=== PATIENT | male | born 1945 | race Caucasian/White ===

== ENCOUNTER 2018-04-28 07:26 | Day surgery (SDC) | payer BC ==
[~2018-04-28 07:26] MED LIST: KETOROLAC TROMETHAMINE 0.45% 4 DROP/0.4 ML DROPERETTE OS PRN; MIDAZOLAM 2 MG/2 ML INJ ONE
[2018-04-28] MEDS: CYCLOPENTOLATE 0.2%/PHENYLEPHRINE 1% OPH SOLN 2 ML OS PRN ×3 (07:54→08:15)
[2018-04-28] MEDS: TETRACAINE HCL 0.5% OPH SOLN 0.6 ML DROPERETTE OS PRN ×2 (07:54→08:15)
[2018-04-28] MEDS: TROPICAMIDE 1% OPH SOLN 3 ML OS PRN ×3 (07:54→08:15)
[2018-04-28] MEDS: BESIFLOXACIN HCL 0.6% OPH SUSP 5 ML BOTTLE OS PRN ×4 (07:54→08:55)
[2018-04-28] MEDS: BUPIVACAINE HCL 0.75% INJ/PF (7.5 MG/1 ML) 10 ML SDV OS PRN ×2 (08:30)
[2018-04-28] MEDS: LIDOCAINE 4% INJ/PF (40 MG/ML) 5 ML AMPUL OS PRN ×2 (08:30)
[2018-04-28] MEDS: EPINEPHRINE INJ/PF 1 MG/1 ML AMPULE ONE ×2 (08:39)
[2018-04-28] MEDS: LIDOCAINE 1%/PHENYLEPHRINE 1.5% 1 ML VIAL ONE ×2 (08:42)
[2018-04-28] MEDS: CHONDR SU A NA/HYALUR INTRAOC KIT (SURGICARE) ONE ×2 (08:45)
--- NOTE | 2018-04-28 11:05 | [facility] DISCHARGE SUMMARY E ---
[facility] Discharge Summary NAME: TIM NUNES AGE: 72Y ADMITTED: 04/28/2018 DISCHARGED: 04/28/2018 FINAL DIAGNOSIS: Cataract, left eye. HOSPITAL COURSE: The patient is a 72-year-old gentleman who underwent uneventful cataract extraction with intraocular lens implant, left eye, on 04/28/2018. He will be discharged to home. He was instructed to resume preoperative medications; to take Tylenol as needed for discomfort; to keep his eye shielded; to use Besivance, Durezol, and Ilevro at 3 p.m. and 8 p.m.; and to follow up in my office in 1 day. DICTATING PHYSICIAN: PERCY SEXTON M.D. [id number] PHY#: [id number] ID: [id number] JOB#: [id number] ACCT: [id number] cc:PERCY SEXTON M.D. >
--- NOTE | 2018-04-28 11:05 | [facility] OPERATIVE REPORT E ---
[facility] Operative Report NAME: TIM NUNES AGE: 72Y DATE OF SURGERY: 04/28/2018 ROOM: PREOPERATIVE DIAGNOSIS: Cataract, left eye. POSTOPERATIVE DIAGNOSIS: Cataract, left eye. PROCEDURE PERFORMED: Phacoemulsification with posterior chamber intraocular lens, left eye. SURGEON: PERCY SEXTON M.D. ANESTHESIA: Topical with MAC. INDICATIONS FOR SURGERY: Difficulty reading captions on TV and driving at night. Best corrected visual acuity 20/40. PROCEDURE: The patient was brought to the operating room and placed on the operative table. Following tetracaine drops, topical anesthesia was administered. This consisted of instrument wipe pledgets soaked in a solution of 4% Xylocaine mixed with 0.75% Marcaine in a 1:2 ratio. A 2 x 1 cm pledget was placed in the superior fornix. A 1 x 1 cm pledget was placed in the inferior fornix. The eye was patched shut for 5 minutes. The patch was removed. The eye was sterilely prepped and draped in the usual manner. Lid speculum was placed in the eye. The pledgets were removed and 4-0 black silk sutures were placed around the superior and the inferior rectus muscles to be used as traction. A conjunctival peritomy was made at the 10 o'clock position. Hemostasis was obtained with bipolar cautery. A posterior limbal groove was created using a crescent knife and dissected anteriorly towards the cornea. A sharp point blade was used to create a paracentesis site at the 2 o'clock position. A 2.4 mm keratome was used to enter the anterior chamber through the groove. Viscoelastic was injected into the anterior chamber. An anterior capsulotomy was performed using Utrata forceps in a capsulorrhexis fashion. Hydrodissection and hydrodelineation were performed. Phacoemulsification was performed in [id number] technique. A total of 1 minute 13 seconds phaco time was used. Following this, the I/A unit was used to remove residual cortex. Viscoelastic was injected into the capsular bag. Intraocular lens model SN60WF, 18.5 diopters, serial number [id number], was placed in the capsular bag. The I/A unit was used to remove residual viscoelastic. The wound was seen to be watertight under high and low pressure, and no sutures were placed. The intraocular lens was well centered. The pressure was adjusted in the eye to normal pressure. The 4-0 black silk sutures and lid speculum were removed. The eye was shielded after Besivance drops were placed. The patient tolerated the procedure well and was sent to the recovery room in good condition. DICTATING PHYSICIAN: PERCY SEXTON M.D. [id number] PHY#: [id number] ID: [id number] JOB#: [id number] ACCT: [id number] cc:PERCY SEXTON M.D. >
== END 2018-04-28 09:27 | disposition home or self-care (01) ==
LOC: SC 07:26
PROVIDERS: ATTEND Ophthalmology
DX: H25.813 Combined forms of age-related cataract, bilateral (principal); H17.82 Peripheral opacity of cornea; H35.363 Drusen (degenerative) of macula, bilateral; H04.123 Dry eye syndrome of bilateral lacrimal glands; H52.4 Presbyopia; I10 Essential (primary) hypertension; E78.00 Pure hypercholesterolemia, unspecified; E07.9 Disorder of thyroid, unspecified; M10.9 Gout, unspecified; Z79.899 Other long term (current) drug therapy; Z87.891 Personal history of nicotine dependence
CPT/HCPCS: 66984; V2632; J2250; J3490 ×3; J0171; J2370; 142

== ENCOUNTER 2018-05-19 06:21 | Day surgery (SDC) | payer BC ==
[~2018-05-19 06:21] MED LIST changes: +BUPIVACAINE HCL 0.75% INJ/PF (7.5 MG/1 ML) 10 ML SDV OD PRN; +KETOROLAC TROMETHAMINE 0.45% 4 DROP/0.4 ML DROPERETTE OD PRN; -KETOROLAC TROMETHAMINE 0.45% 4 DROP/0.4 ML DROPERETTE OS PRN; +LIDOCAINE 4% INJ/PF (40 MG/ML) 5 ML AMPUL OD PRN; -MIDAZOLAM 2 MG/2 ML INJ ONE
[2018-05-19] MEDS: CYCLOPENTOLATE 0.2%/PHENYLEPHRINE 1% OPH SOLN 2 ML OD PRN ×3 (06:50→07:10)
[2018-05-19] MEDS: TROPICAMIDE 1% OPH SOLN 3 ML OD PRN ×3 (06:50→07:10)
[2018-05-19] MEDS: BESIFLOXACIN HCL 0.6% OPH SUSP 5 ML BOTTLE OD PRN ×4 (06:50→08:10)
[2018-05-19] MEDS: TETRACAINE HCL 0.5% OPH SOLN 0.6 ML DROPERETTE OD PRN ×2 (06:51→07:10)
[2018-05-19] MEDS ORDERED: MIDAZOLAM 2 MG/2 ML INJ ONE (07:02)
[2018-05-19] MEDS ORDERED: FENTANYL CITRATE INJ/PF 100 MCG/2 ML AMPUL ONE (07:10)
[2018-05-19] MEDS: CHONDR SU A NA/HYALUR INTRAOC KIT (SURGICARE) ONE ×2 (07:50)
[2018-05-19] MEDS: LIDOCAINE 1%/PHENYLEPHRINE 1.5% 1 ML VIAL ONE ×2 (07:50)
[2018-05-19] MEDS: EPINEPHRINE INJ/PF 1 MG/1 ML AMPULE ONE ×2 (07:50)
[2018-05-19] MEDS ORDERED: BRIMONIDINE TARTRATE 0.2% OPH SOLN 5 ML ONE (08:20)
--- NOTE | 2018-05-19 11:39 | [facility] OPERATIVE REPORT E ---
[facility] Operative Report NAME: TIM NUNES AGE: 72Y DATE OF SURGERY: 05/19/2018 ROOM: PREOPERATIVE DIAGNOSIS: Cataract, right eye. POSTOPERATIVE DIAGNOSIS: Cataract, right eye. PROCEDURE PERFORMED: Phacoemulsification with posterior chamber intraocular lens, right eye. SURGEON: PERCY SEXTON M.D. ANESTHESIA: Topical with MAC. DESCRIPTION OF PROCEDURE: The patient was brought to the Operating Room and placed on the operative table. Following tetracaine drops, topical anesthesia was administered. This consisted of instrument wipe pledgets soaked in a solution of 4% Xylocaine mixed with 0.75% Marcaine in a 1:2 ratio. A 2 x 1 cm pledget was placed in the superior fornix. A 1 x 1 cm pledget was placed in the inferior fornix. The eye was patched shut for 5 minutes. The patch was removed. The eye was sterilely prepped and draped in the usual manner. Lid speculum was placed in the eye. The pledgets were removed. 4-0 black silk sutures were placed around the superior and the inferior rectus muscles to be used as traction. A conjunctival peritomy was made at the 10 o'clock position. Hemostasis was obtained with bipolar cautery. A posterior limbal groove was created using a crescent knife and dissected anteriorly towards the cornea. A sharp point blade was used to create a paracentesis site at the 2 o'clock position. A 2.4 mm keratome was used to enter the anterior chamber through the groove. Viscoelastic was injected into the anterior chamber. An anterior capsulotomy was performed using Utrata forceps in a capsulorrhexis fashion. Hydrodissection and hydrodelineation were performed. Phacoemulsification was performed in [id number]-rrt-[id number] technique. A total of 6.90 CDE phaco time was used. Following this, the I/A unit was used to remove residual cortex. Viscoelastic was injected into the capsular bag. Intraocular lens model SN60WF, 18.5 diopters, serial number [id number] was placed in the capsular bag. The I/A unit was used to remove residual viscoelastic. The wound was seen to be watertight under high and low pressure, and no sutures were placed. The intraocular lens was well centered. The pressure was adjusted in the eye to normal pressure. The 4-0 black silk sutures and lid speculum were removed. The eye was shielded after Besivance drops were placed. The patient tolerated the procedure well and was sent to the Recovery Room in good condition. DICTATING PHYSICIAN: PERCY SEXTON M.D. [id number] PHY#: [id number] ID: [id number] JOB#: [id number] ACCT: [id number] cc:PERCY SEXTON M.D. >
--- NOTE | 2018-05-19 11:45 | [facility] DISCHARGE SUMMARY E ---
[facility] Discharge Summary NAME: TIM NUNES AGE: 72Y ADMITTED: 05/19/2018 DISCHARGED: 05/19/2018 HOSPITAL COURSE: The patient is a 72-year-old gentleman who underwent uneventful cataract extraction with intraocular lens implant, right eye, on 05/19/2018. He will be discharged to home. He is instructed to resume preoperative medications, take Tylenol as needed for discomfort, to keep his eyes shielded, to use Besivance, Durezol, and Ilevro at 3 p.m. and 8 p.m. and to follow up in my office in one day. DICTATING PHYSICIAN: PERCY SEXTON M.D. [id number] PHY#: [id number] ID: [id number] JOB#: [id number] ACCT: [id number] cc:PERCY SEXTON M.D. >
== END 2018-05-19 08:47 | disposition home or self-care (01) ==
LOC: SC 06:21
PROVIDERS: ATTEND Ophthalmology
DX: H25.811 Combined forms of age-related cataract, right eye (principal); Z96.1 Presence of intraocular lens; I10 Essential (primary) hypertension; Z79.899 Other long term (current) drug therapy; Z87.891 Personal history of nicotine dependence
CPT/HCPCS: 142; J0171; J2250; J2370; J3010; J3490; V2632

== ENCOUNTER 2019-10-03 06:46 | Observation (INO) | payer MEDICARE, BC ==
[2019-10-03] MEDS ORDERED: MORPHINE SULFATE 10 MG/ML INJ IV PRN (07:29)
[2019-10-03] MEDS ORDERED: ONDANSETRON HCL INJ/PF 4 MG/2 ML SDV IV ONE (07:29)
[2019-10-03] MEDS ORDERED: ETOMIDATE INJ/PF 20 MG/10 ML SDV IV ONE (07:30)
--- NOTE | 2019-10-03 07:40 | ER Document Report ---
ED General - General Chief Complaint: Shoulder Pain Stated Complaint: SHOULDER PAIN Time Seen by Provider: 10/03/19 07:08 Primary Care Provider: JESS BRADY MD [Primary Care Provider] - Follow up as needed TRAVEL OUTSIDE OF THE [place] IN LAST 30 DAYS: No - HPI Notes: Mr. Chisholm is a 74-year-old male with a chief complaint of recurrent left shoulder dislocation. 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 His most recent dislocation was 5 days ago when he stumbled and fell. He was seen in the emergency department here and had reduction of the shoulder under procedural sedation. He was referred to Dr. Vijay García from orthopedics who reexamined him in the office 2 days ago and advised him he could discontinue use of the sling. A referral was being arranged for outpatient physical therapy. Patient was fine when he went to bed last night. When he woke up this morning the left shoulder had spontaneously dislocated during sleep. Since then he has had persistent severe pain in the shoulder. He denies any other trauma. Patient has a history of mild hypertension. He is otherwise in good general health. His last oral intake was about 12 hours ago. He has no history of adverse reaction to sedation or general anesthesia. - Related Data Allergies/Adverse Reactions: No Known Allergies Allergy (Verified 09/28/19 16:33) Past Medical History - General Information source: Patient, Relative - Social History Smoking Status: Never Smoker Frequency of alcohol use: Rare Drug Abuse: None Lives with: Spouse/Significant other Family History: Reviewed & Not Pertinent Patient has suicidal ideation: No Patient has homicidal ideation: No - Past Medical History Cardiac Medical History: Reports: Hx Hypertension - MEDICATED Denies: Hx Heart Attack Pulmonary Medical History: Denies: Hx Asthma Neurological Medical History: Denies: Hx Cerebrovascular Accident, Hx Seizures GI Medical History: Denies: Hx Hepatitis, Hx Hiatal Hernia, Hx Ulcer Infectious Medical History: Denies: Hx Hepatitis Past Surgical History: Reports: Hx Orthopedic Surgery - left arm surgery 1960s. Denies: Hx Open Heart Surgery, Hx Pacemaker Review of Systems - Review of Systems Notes: Constitutional: Negative for fever. HENT: Negative for sore throat. Eyes: Negative for visual changes. Cardiovascular: Negative for chest pain. Respiratory: Negative for shortness of breath. Gastrointestinal: Negative for abdominal pain, vomiting or diarrhea. Genitourinary: Negative for dysuria. Musculoskeletal: As per HPI. Skin: Negative for rash. Neurological: Negative for headaches, weakness or numbness. 10 point ROS negative except as marked above and in HPI. Physical Exam - Vital signs Vitals: Temp Pulse Resp BP Pulse Ox 97.7 F 74 18 143/89 H 99 10/03/19 06:52 10/03/19 06:52 10/03/19 06:52 10/03/19 06:52 10/03/19 06:52 - Notes Notes: GENERAL: Well-developed well-nourished man appearing approximately stated age who is in severe pain holding left upper extremity close to his body. SKIN: Good turgor no rashes. HEAD: Normocephalic atraumatic. EYES: PERRLA. EOMI. Conjunctivae and sclerae clear. EARS: CANALS AND TMS CLEAR. NOSE: CLEAR. MOUTH: Moist mucosa. Good dentition. No stridor or edema. No drooling. NECK: Supple. No masses or thyromegaly. No adenopathy. Carotids 2+ without bruits. No JVD. BACK: Symmetrical without tenderness. CHEST: Respirations unlabored. Breath sounds clear and symmetrical. HEART: Regular rhythm. No murmur gallop or rub. ABDOMEN: Soft nontender without masses, organomegaly or rebound. Bowel sounds normally active. No bruits. GENITALIA: Deferred. EXTREMITIES: Clinically the left shoulder appears to be dislocated anteriorly. He is holding extremity close to the body and resists all movement. He is exquisitely tender over the shoulder area. His distal sensory and motor function are normal. No calf tenderness. Cap refill less than 1.5 seconds. Dorsalis pedis and posterior tibial pulses 3+ and symmetrical. NEUROLOGICAL: GCS 15. Alert and oriented x3. Fluent speech. Cranial nerves II through XII intact. Sensorimotor and cerebellar normal. Normal tone. PSYCHIATRIC: Anxious affect. Course - Re-evaluation Re-evalutation: 10/03/19 07:40 Patient will remain n.p.o. at this time. I will get an x-ray to confirm a dislocation. Permit to be obtained for procedural sedation and closed reduction of shoulder dislocation. We will place an IV and give the patient morphine and Zofran initially and then plan to sedate him with etomidate. 10/03/19 08:24 Shoulder reduction was unsuccessful. I spoke with Dr. Mills who is on-call for Dr. García today. He indicated that he does not have privileges at this hospital and requested that we contact the orthopedist on staff here who is on- call for unassigned patients. I spoke with this individual, Dr. Rincon, who refused to see the patient stating that this was a private patient of Dr. García and at their group was responsible for his care. I again spoke with Dr. Mills who asked me to transfer the patient to [facility] where he has privileges. I advised him that I was concerned about a potential EMTALA violation under the circumstances. He subsequently contacted Dr. García who returned a call to me in the emergency department. Dr. García has asked that I give the patient additional analgesics and admit the patient to his service and he will attempt reduction under general anesthesia in the OR. Patient and have been informed of current findings and recommendations and they are in agreement with current treatment plan. - Vital Signs Vital signs: Temp Pulse Resp BP Pulse Ox 97.7 F 74 18 143/89 H 99 10/03/19 06:52 10/03/19 06:52 10/03/19 06:52 10/03/19 06:52 10/03/19 06:52 Procedures - Joint Reduction/Fracture Care Left Shoulder Consent obtained: Yes Conscious sedation: Yes - Etomidate IV Pre-procedure NV exam: Yes - normal Post-procedure NV exam: Yes - normal Post-reduction x-ray: Joint not reduced, No fracture seen Reduction attempts: 1 - Contacted Dr. Rincon civil litigation attorney for Dr. Sepulveda Complications: No Notes: 10/03/19 08:13 Traction/Countertracition and Milch maneuvers attempted. Discharge - Discharge Clinical Impression: Anterior dislocation of left shoulder Qualifiers: Encounter type: initial encounter Qualified Code(s): S43.015A - Anterior dislocation of left humerus, initial encounter Condition: Good Disposition: ADMITTED INPATIENT Admitting Provider: Orthopedics Dr. Vijay García Unit Admitted: Surgical Floor Referrals: JESS BRADY MD [Primary Care Provider] - Follow up as needed
--- NOTE | 2019-10-03 07:43 | RADIOLOGY REPORT (SQ) ---
EXAM DESCRIPTION: XR SHOULDER 2 OR MORE VIEWS COMPLETED DATE/TME: 10/03/2019 07:00 CLINICAL HISTORY: 74 years, Male, bone tenderness COMPARISON: 09/28/2019 NUMBER OF VIEWS: Two TECHNIQUE: Two views of the left shoulder LIMITATIONS: None. FINDINGS: Bones are demineralized. There is an anterior shoulder dislocation. No definite fracture is identified. The AC joint is intact. Visualized portions of the left lung are clear. IMPRESSION: Anterior shoulder dislocation copyright 2010 [employer]- All Rights Reserved
[2019-10-03] MEDS ORDERED: MORPHINE SULFATE 10 MG/ML INJ IV ONE ×2 (08:27→09:08)
--- NOTE | 2019-10-03 08:33 | RADIOLOGY REPORT (SQ) ---
EXAM DESCRIPTION: SHOULDER LEFT 2 OR MORE VIEWS COMPLETED DATE/TIME: 10/03/2019 8:15 am REASON FOR STUDY: dislocation COMPARISON: 10/03/2019 7 o'clock NUMBER OF VIEWS: One view TECHNIQUE: AP images acquired of the left shoulder. LIMITATIONS: None. FINDINGS: MINERALIZATION: Normal. BONES: No acute fracture. No worrisome bone lesions. JOINTS: Persistent anterior inferior dislocation. No reduction. VISUALIZED LUNGS AND RIBS: No pneumothorax. No rib fracture. SOFT TISSUES: No radiopaque foreign body. OTHER: No other significant finding. IMPRESSION: Persistent dislocation. TECHNICAL DOCUMENTATION: JOB ID: [id number] [employer]- All Rights Reserved Reading location - IP/workstation name: [email or web address]
[2019-10-03] MEDS ORDERED: DEXTROSE 50%-WATER 25 GM/50 ML DISP.SYRIN IV PRN ×2 (10:10)
[2019-10-03] MEDS ORDERED: GLUCAGON,HUMAN RECOMB 1 MG INJ SUBCUT PRN (10:10)
[2019-10-03] MEDS ORDERED: DEXTROSE 40% GEL 15 GM TUBE PO PRN ×2 (10:10)
[2019-10-03] MEDS: HYDROMORPHONE HCL INJ/PF 2 MG/ML AMPULE IV PRN ×4 (10:44→21:08)
[2019-10-03] MEDS: OXYCODONE HCL SR 10 MG TABLET PO SCH ×2 (10:45→21:09)
[2019-10-03] MEDS ORDERED: ONDANSETRON 4 MG TAB.RAPDIS PO SCH (11:00)
[2019-10-03 11:15] LABS: HEMATOCRIT 41.2 % (37.9-51.0); HEMOGLOBIN 13.9 g/dL (13.5-17.0); MEAN CORPUSCULAR HEMOGLOBIN 30.1 pg (27.0-33.4); MEAN CORPUSCULAR HGB CONC 33.8 g/dL (32.0-36.0); MEAN CORPUSCULAR VOLUME 89 fl (80-97); PLATELET COUNT 212 10^3/uL (150-450); RED BLOOD COUNT 4.62 10^6/uL (4.35-5.55); RED CELL DISTRIBUTION WIDTH 13.5 % (11.5-14.0); WHITE BLOOD COUNT 10.4 10^3/uL (4.0-10.5)
[2019-10-03 11:18] LABS: INTERNATIONAL RATION (INR) 1.02; PROTHROMBIN TIME 13.4 SEC (11.4-15.4)
[2019-10-03 11:29] LABS: ANION GAP 6 (5-19); BLOOD UREA NITROGEN 16 mg/dL (7-20); CALCIUM 9.2 mg/dL (8.4-10.2); CARBON DIOXIDE 23 mmol/L (22-30); CHLORIDE 106 mmol/L (98-107); GLUCOSE 113 mg/dL (75-110); POTASSIUM 3.9 mmol/L (3.6-5.0)
[2019-10-03] MEDS: ONDANSETRON 4 MG TAB.RAPDIS PO PRN (13:44)
--- NOTE | 2019-10-03 14:40 | RADIOLOGY REPORT (SQ) ---
EXAM DESCRIPTION: CHEST SINGLE VIEW COMPLETED DATE/TIME: 10/03/2019 2:08 pm REASON FOR STUDY: pre op COMPARISON: None. EXAM PARAMETERS: NUMBER OF VIEWS: One view. TECHNIQUE: Single frontal radiographic view of the chest acquired. RADIATION DOSE: NA LIMITATIONS: None. FINDINGS: LUNGS AND PLEURA: No opacities, masses or pneumothorax. No pleural effusion. MEDIASTINUM AND HILAR STRUCTURES: No masses. Contour normal. HEART AND VASCULAR STRUCTURES: Heart normal in size. Normal vasculature. BONES: Dislocated left shoulder. HARDWARE: None in the chest. OTHER: No other significant finding. IMPRESSION: NO ACUTE RADIOGRAPHIC FINDING IN THE CHEST. TECHNICAL DOCUMENTATION: JOB ID: [id number] [employer]- All Rights Reserved Reading location - IP/workstation name: [email or web address]
--- NOTE | 2019-10-03 17:10 | EKG REPORT ---
SEVERITY:- BORDERLINE ECG - SINUS RHYTHM ATRIAL PREMATURE COMPLEX BORDERLINE T ABNORMALITIES, INFERIOR LEADS BORDERLINE PROLONGED QT INTERVAL : Confirmed by: Odilon Hayes 03-Oct-2019 17:10:10
[2019-10-04] MEDS: RINGERS SOLUTION,LACTATED 1,000 ML IV PRN ×2 (00:05→15:32)
[2019-10-04] MEDS: HYDROMORPHONE HCL INJ/PF 2 MG/ML AMPULE IV PRN ×2 (00:07→04:34)
[2019-10-04] MEDS: ONDANSETRON 4 MG TAB.RAPDIS PO PRN (00:36)
[2019-10-04] MEDS ORDERED: ONDANSETRON HCL INJ/PF 4 MG/2 ML SDV ONE (04:45)
[2019-10-04] MEDS ORDERED: ONDANSETRON HCL INJ/PF 4 MG/2 ML SDV IV PRN ×2 (04:54→07:56)
[2019-10-04] MEDS ORDERED: PROPOFOL INJ 200 MG/20 ML VIAL IV ONE (06:54)
[2019-10-04] MEDS ORDERED: FENTANYL CITRATE INJ/PF 100 MCG/2 ML AMPUL ONE (06:54)
[2019-10-04] MEDS ORDERED: MIDAZOLAM 2 MG/2 ML INJ ONE (06:54)
[2019-10-04] MEDS ORDERED: PROMETHAZINE HCL 25 MG TABLET PO PRN ×2 (06:57→09:40)
--- NOTE | 2019-10-04 07:02 | PDOC H&P ---
History of Present Illness Admission Date/PCP: 10/03/19 08:48 JESS BRADY MD History of Present Illness: TIM NUNES is a 74 year old male 74-year-old white male presents the density room with recurrent left shoulder anterior dislocation status post a closed reduction earlier this week. Patient states he was lying in bed and had a spontaneous dislocation. Multiple attempts in the emergency room were made to reduce the dislocation which were unsuccessful. The patient is admitted to the orthopedic service for management of the shoulder dislocation. Past Medical History Cardiac Medical History: Reports: Hypertension Denies: Myocardial Infarction Pulmonary Medical History: Reports: Asthma - childhood Neurological Medical History: Denies: Seizures GI Medical History: Denies: Hepatitis, Hiatal Hernia Musculoskeltal Medical History: Reports: Other - Left shoulder dislocation 1 week ago Psychiatric Medical History: Reports: None Hematology: Denies: Anemia, Sickle Cell Disease Past Surgical History Past Surgical History: Reports: Orthopedic Surgery - left arm surgery 1960s Denies: Pacemaker Social History Information Source: Patient, DrHarinder Murphy, [facility] Records Lives with: Spouse/Significant other Smoking Status: Former Smoker - Advance Directive Resuscitation Status: Full Code Family History Family History: Reviewed & Not Pertinent Parental Family History Reviewed: No Children Family History Reviewed: No Sibling(s) Family History Reviewed.: No Medication/Allergy Home Medications: Allopurinol [Zyloprim 300 mg Tablet] 300 mg PO DAILY 04/21/18 Atorvastatin Calcium [Lipitor 40 mg Tablet] 40 mg PO QHS 04/21/18 Doxazosin Mesylate [Cardura] 8 mg PO QAM 04/21/18 Finasteride [Proscar 5 mg Tablet] 5 mg PO DAILY 04/21/18 Lisinopril [Prinivil 40 mg Tablet] 40 mg PO QAM 04/21/18 Amlodipine Besylate [Norvasc 5 mg Tablet] 5 mg PO DAILY 10/03/19 Allergies/Adverse Reactions: No Known Allergies Allergy (Verified 09/28/19 16:33) Review of Systems All systems: as per PMH Physical Exam Vital Signs: Temp Pulse Resp BP Pulse Ox 36.7 C 60 20 148/70 H 97 10/04/19 00:00 10/04/19 00:00 10/04/19 00:00 10/04/19 00:00 10/04/19 00:00 Intake & Output 10/02/19 10/03/19 10/04/19 06:59 06:59 06:59 Intake Total 290 Output Total 200 Balance 90 Weight 96.162 kg 96.1 kg Physical Exam: Overweight middle-aged white male sitting upright in a hospital bed with an emesis bag in front of him. Patient is in moderate distress. is sitting in recliner next to him. Patient is alert, oriented, and appropriate. General appearance: PRESENT: mild distress, severe distress Head exam: PRESENT: normocephalic Respiratory exam: PRESENT: unlabored Cardiovascular exam: PRESENT: RRR Vascular exam: PRESENT: normal capillary refill GI/Abdominal exam: PRESENT: soft Rectal exam: PRESENT: deferred Extremities exam: PRESENT: other - Left upper extremity shoulder immobilizer. There is pain associate with passive range of motion. There is tenderness to palpation about the left shoulder. There is no skin abnormalities. Distal neurovascular examination is intact. Neurological exam: PRESENT: alert, awake, oriented to person, oriented to place, oriented to time, oriented to situation. ABSENT: motor sensory deficit Psychiatric exam: PRESENT: appropriate affect, normal mood. ABSENT: homicidal ideation, suicidal ideation Skin exam: PRESENT: dry, intact, warm. ABSENT: cyanosis, rash Results Laboratory Results: 10/03/19 11:04 10/03/19 11:04 10/03/19 10/03/19 11:04 11:04 WBC 10.4 RBC 4.62 Hgb 13.9 Hct 41.2 MCV 89 MCH 30.1 MCHC 33.8 RDW 13.5 Plt Count 212 Sodium 135.4 L Potassium 3.9 Chloride 106 Carbon Dioxide 23 Anion Gap 6 BUN 16 Creatinine 0.74 Est GFR ( Amer) > 60 Glucose 113 H Calcium 9.2 Impressions: Chest X-Ray 10/03/19 00:00 IMPRESSION: NO ACUTE RADIOGRAPHIC FINDING IN THE CHEST. Shoulder X-Ray 10/03/19 07:28 IMPRESSION: Persistent dislocation. Status: Imported from PACS Assessment & Plan - Diagnosis (1) Anterior dislocation of left shoulder Qualifiers: Encounter type: initial encounter Qualified Code(s): S43.015A - Anterior dislocation of left humerus, initial encounter Is this a current diagnosis for this admission?: Yes Plan: Closed reduction under anesthesia with follow-up CT scan - Time Time Spent: 50 to 70 Minutes Anticipated discharge: Home Within: within 24 hours
[2019-10-04] MEDS ORDERED: MORPHINE SULFATE 10 MG/ML INJ IV PRN (07:56)
[2019-10-04] MEDS ORDERED: OXYCODONE-ACETAMINOPHEN 5-325 MG TABLET PO PRN ×3 (07:56→09:39)
[2019-10-04] MEDS ORDERED: FENTANYL CITRATE INJ/PF 100 MCG/2 ML AMPUL IV PRN ×3 (07:56)
[2019-10-04] MEDS ORDERED: DIPHENHYDRAMINE HCL 50 MG/ML VIAL IV PRN (07:56)
[2019-10-04] MEDS ORDERED: MEPERIDINE HCL/PF INJ 25 MG/1 ML DISP.SYRIN IV PRN (07:56)
[2019-10-04] MEDS ORDERED: LIDOCAINE 2%/EPINEPHRINE INJ 20 ML VIAL ONE (08:31)
[2019-10-04] MEDS ORDERED: ROPIVACAINE HCL 0.5% INJ/PF (5 MG/1 ML) 30 ML SDV ONE (08:32)
[2019-10-04] MEDS ORDERED: LIDOCAINE 2% INJ (20 MG/ML) 20 ML MDV ONE (08:32)
[2019-10-04] MEDS: OXYCODONE HCL SR 10 MG TABLET PO SCH ×2 (10:03→21:38)
--- NOTE | 2019-10-04 11:58 | RADIOLOGY REPORT (SQ) ---
EXAM DESCRIPTION: CT LT UPPER EXTREMITY WITHOUT COMPLETED DATE/TIME: 10/04/2019 11:42 am REASON FOR STUDY: DISLOCATED SHOULDER COMPARISON: Fluoroscopy 10/04/2019 Left shoulder films 10/03/2019 TECHNIQUE: Non arthrogram Axial imaging performed through the leftshoulder with reformatted oblique coronal and oblique sagittal imaging windowed for bone and soft tissues. All CT scanners at this facility use dose modulation, iterative reconstruction, and/or weight based d osing when appropriate to reduce radiation dose to as low as reasonably achievable (ALARA). [facility]: Dose Right [facility]: CareDose [facility]: Dose Right [facility]: Teradose 4D [facility]: Lumific RADIATION DOSE: CT Rad equipment meets quality standard of care and radiation dose reduction techniq ues were employed. CTDIvol: 18.7 mGy. DLP: 471 mGy-cm. mGy. LIMITATIONS: None. FINDINGS: SOFT TISSUES: There is a left glenohumeral joint effusion. Trace soft tissue air along th e left brachial plexus/scalene muscles on axial images 38-44, coronal reconstruction images 29 throug h 36. BONY ARCHITECTURE: Fracture fragments from acute bony Bankart injury along the anterior inferior bony glenoid, best shown on axial images 38-43, and sagittal images 47-77. Hill-Sachs defect in the posterior left humeral head axial image 20. GLENOHUMERAL JOINT: Normal alignment. Joint effusion. ACROMION AND AC JOINT: Type 2 acromion with mild acromioclavicular joint bony hypertrophy. ROTATOR CUFF: Non arthrogram images of the rotator cuff demonstrate grossly normal thickness GLENOID, LABRUM AND BICEPS: Not well seen OTHER: No other significant finding. IMPRESSION: Acute Bankart deformity, anterior inferior bony glenoid. Left shoulder joint effusion Defect in the posterior left humeral head from Hill-Sachs deformity, this could be acute or chronic. TECHNICAL DOCUMENTATION: JOB ID: [id number] Quality ID # [id number]: Final reports with documentation of one or more dose reduction techniques (e.g., Au tomated exposure control, adjustment of the mA and/or kV according to patient size, use of iterative reconstruction technique) 2010 [employer]- All Rights Reserved Reading location - IP/workstation name: [email or web address]
--- NOTE | 2019-10-04 12:00 | RADIOLOGY REPORT (SQ) ---
EXAM DESCRIPTION: SHOULDER LEFT 1 VIEW; NO CHG FLUORO COMPLETED DATE/TIME: 10/04/2019 10:19 am REASON FOR STUDY: CLOSED REDUCTION LEFT SHOULDER ASST WITH FLUORO IN OR COMPARISON: Left shoulder films 10/03/2019 FLUOROSCOPY TIME: Less than 5 seconds 2 C-arm images saved to PACS. TECHNIQUE: Intra-operative images acquired during surgical procedure to evaluate progress. NUMBER OF IMAGES: 2 C-arm images LIMITATIONS: None. FINDINGS: 2 C-arm images are submitted. Grossly normal glenohumeral alignment on limited AP fluoros copic images IMPRESSION: IMAGE(S) OBTAINED DURING PROCEDURE. COMMENT: Quality ID [id number]: Final reports for procedures using fluoroscopy that document radiation exp osure indices, or exposure time and number of fluorographic images (if radiation exposure indices are not available) Please consult full operative report of the attending physician for description of the procedure. TECHNICAL DOCUMENTATION: JOB ID: [id number] [employer]- All Rights Reserved Reading location - IP/workstation name: [email or web address]
--- NOTE | 2019-10-04 12:00 | RADIOLOGY REPORT (SQ) ---
EXAM DESCRIPTION: SHOULDER LEFT 1 VIEW; NO CHG FLUORO COMPLETED DATE/TIME: 10/04/2019 10:19 am REASON FOR STUDY: CLOSED REDUCTION LEFT SHOULDER ASST WITH FLUORO IN OR COMPARISON: Left shoulder films 10/03/2019 FLUOROSCOPY TIME: Less than 5 seconds 2 C-arm images saved to PACS. TECHNIQUE: Intra-operative images acquired during surgical procedure to evaluate progress. NUMBER OF IMAGES: 2 C-arm images LIMITATIONS: None. FINDINGS: 2 C-arm images are submitted. Grossly normal glenohumeral alignment on limited AP fluoros copic images IMPRESSION: IMAGE(S) OBTAINED DURING PROCEDURE. COMMENT: Quality ID [id number]: Final reports for procedures using fluoroscopy that document radiation exp osure indices, or exposure time and number of fluorographic images (if radiation exposure indices are not available) Please consult full operative report of the attending physician for description of the procedure. TECHNICAL DOCUMENTATION: JOB ID: [id number] [employer]- All Rights Reserved Reading location - IP/workstation name: [email or web address]
--- NOTE | 2019-10-04 12:32 | Operative Report ---
Operative Report DATE OF SURGERY: 10/04/19 PREOPERATIVE DIAGNOSIS: left shoulder dislocation OPERATION: closed redcution left shoulder SURGEON: ROSSY ELENA ANESTHESIA: IV-Regional INTRAOPERATIVE FINDINGS: moderate instability PROCEDURE: left shoulder manipulated under fluoroscopic guidance to effect an anatomic reduction. Patient returned to PACU in satisfactory condition.
[2019-10-04] MEDS: IBUPROFEN 800 MG in NORMAL SALINE 250 ML IV SCH ×2 (14:00→21:38)
[2019-10-05] MEDS: IBUPROFEN 800 MG in NORMAL SALINE 250 ML IV SCH (05:39)
[2019-10-05 09:05] VITALS: BP 141/72
[2019-10-05] MEDS: OXYCODONE HCL SR 10 MG TABLET PO SCH (09:19)
--- NOTE | 2019-10-05 10:48 | PDOC DISCHARGE SUMMARY ---
Impression - Admit/DC Date/PCP Admission Date/Primary Care Provider: 10/03/19 08:48 JESS BRADY MD Discharge Date: 10/05/19 - Discharge Diagnosis (1) Anterior dislocation of left shoulder Is this a current diagnosis for this admission?: Yes - Additional Information Resuscitation Status: Full Code Referrals: ROSSY ELENA MD [ACTIVE STAFF] - Home Medications: Allopurinol [Zyloprim 300 mg Tablet] 300 mg PO DAILY 04/21/18 Atorvastatin Calcium [Lipitor 40 mg Tablet] 40 mg PO QHS 04/21/18 Doxazosin Mesylate [Cardura] 8 mg PO QAM 04/21/18 Finasteride [Proscar 5 mg Tablet] 5 mg PO DAILY 04/21/18 Lisinopril [Prinivil 40 mg Tablet] 40 mg PO QAM 04/21/18 Amlodipine Besylate [Norvasc 5 mg Tablet] 5 mg PO DAILY 10/03/19 History of Present Illiness History of Present Illness: TIM NUNES is a 74 year old male who sustained a fall onto his left shoulder resulting in anterior shoulder dislocation. Patient was originally seen at the emergency room where closed reduction was performed and apparently reduced however patient continued to have discomfort into his left shoulder. Was once again seen at the emergency room where radiographs demonstrated persistent anterior shoulder dislocation. Patient was admitted to the orthopedic service for operative intervention and pain control. Hospital Course Hospital Course: On 10/04/2019 patient underwent closed reduction left shoulder in the operative room which provided successful reduction. CT scan was then ordered postoperatively demonstrating degenerative changes but no evidence of recurrent subluxation or dislocation. On postop day number patient states his pain was significantly improved after close reduction. Denies numbness or tingling. Pain controlled. No issues overnight. Physical Exam Vital Signs: Temp Pulse Resp BP Pulse Ox 98.4 F 74 18 141/72 H 96 10/05/19 07:55 10/05/19 07:55 10/05/19 07:55 10/05/19 07:55 10/05/19 07:55 Intake & Output 10/04/19 10/05/19 10/06/19 06:59 06:59 06:59 Intake Total 1290 2967 Output Total 200 Balance 1090 2967 Weight 96.1 kg 100.3 kg General appearance: PRESENT: no acute distress, well-developed, well-nourished Head exam: PRESENT: atraumatic, normocephalic Eye exam: PRESENT: conjunctiva pink, EOMI, PERRLA. ABSENT: scleral icterus Ear exam: PRESENT: normal external ear exam Mouth exam: PRESENT: moist, tongue midline Neck exam: ABSENT: carotid bruit, JVD, lymphadenopathy, thyromegaly Respiratory exam: PRESENT: clear to auscultation sheldon. ABSENT: rales, rhonchi, wheezes Cardiovascular exam: PRESENT: RRR. ABSENT: diastolic murmur, rubs, systolic murmur Pulses: PRESENT: normal dorsalis pedis pul Vascular exam: PRESENT: normal capillary refill GI/Abdominal exam: PRESENT: normal bowel sounds, soft. ABSENT: distended, guarding, mass, organolmegaly, rebound, tenderness Rectal exam: PRESENT: deferred Extremities exam: PRESENT: full ROM. ABSENT: calf tenderness, clubbing, pedal edema Musculoskeletal exam: PRESENT: other - Left shoulder: Swelling noted along the proximal humerus with mild ecchymosis. Compartments soft and compressible no sign of compartment syndrome. Intact flexion extension wrist and hand with full hand ingot weigher. No sensory deficits. Neurological exam: PRESENT: alert, awake, oriented to person, oriented to place, oriented to time, oriented to situation, CN II-XII grossly intact. ABSENT: motor sensory deficit Psychiatric exam: PRESENT: appropriate affect, normal mood. ABSENT: homicidal ideation, suicidal ideation Skin exam: PRESENT: dry, intact, warm. ABSENT: cyanosis, rash Results Laboratory Results: WBC 10.4 10^3/uL (4.0-10.5) 10/03/19 11:04 RBC 4.62 10^6/uL (4.35-5.55) 10/03/19 11:04 Hgb 13.9 g/dL (13.5-17.0) 10/03/19 11:04 Hct 41.2 % (37.9-51.0) 10/03/19 11:04 MCV 89 fl (80-97) 10/03/19 11:04 MCH 30.1 pg (27.0-33.4) 10/03/19 11:04 MCHC 33.8 g/dL (32.0-36.0) 10/03/19 11:04 RDW 13.5 % (11.5-14.0) 10/03/19 11:04 Plt Count 212 10^3/uL (150-450) 10/03/19 11:04 PT 13.4 SEC (11.4-15.4) 10/03/19 11:04 INR 1.02 10/03/19 11:04 Sodium 135.4 mmol/L (137-145) L 10/03/19 11:04 Potassium 3.9 mmol/L (3.6-5.0) 10/03/19 11:04 Chloride 106 mmol/L (98-107) 10/03/19 11:04 Carbon Dioxide 23 mmol/L (22-30) 10/03/19 11:04 Anion Gap 6 (5-19) 10/03/19 11:04 BUN 16 mg/dL (7-20) 10/03/19 11:04 Creatinine 0.74 mg/dL (0.52-1.25) 10/03/19 11:04 Est GFR ( Amer) > 60 (>60) 10/03/19 11:04 Est GFR (MDRD) Non-Af > 60 (>60) 10/03/19 11:04 Glucose 113 mg/dL (75-110) H 10/03/19 11:04 Calcium 9.2 mg/dL (8.4-10.2) 10/03/19 11:04 Impressions: Chest X-Ray 10/03/19 00:00 IMPRESSION: NO ACUTE RADIOGRAPHIC FINDING IN THE CHEST. Shoulder X-Ray 10/03/19 07:00 IMPRESSION: Anterior shoulder dislocation copyright 2011 [employer]- All Rights Reserved Shoulder X-Ray 10/03/19 07:28 IMPRESSION: Persistent dislocation. Fluoroscopy 10/04/19 00:00 IMPRESSION: IMAGE(S) OBTAINED DURING PROCEDURE. Shoulder X-Ray 10/04/19 00:00 IMPRESSION: IMAGE(S) OBTAINED DURING PROCEDURE. Upper Extremity CT 10/04/19 00:00 IMPRESSION: Acute Bankart deformity, anterior inferior bony glenoid. Left shoulder joint effusion Defect in the posterior left humeral head from Hill-Sachs deformity, this could be acute or chronic. Plan Plan of Treatment: Patient underwent successful closed reduction. At this point will be discharged to home will continue sling at all times. May remove it for hygiene purposes but no external rotation. Patient will follow in the office with myself for further evaluation and discussion of treatment. Stroke Is this a Stroke Patient?: No Acute Heart Failure - Is this a Heart Failure Patient?: No
== END 2019-10-05 12:11 | disposition home or self-care (01) ==
LOC: ER 06:46 → INTOOBSV 08:48 → EH 08:48 → 4N 09:31
PROVIDERS: ADMIT Orthopaedic Surgery; ATTEND Orthopaedic Surgery
DX: S43.015A Anterior dislocation of left humerus, initial encounter (principal); W01.0XXA Fall on same level from slipping, tripping and stumbling without subsequent striking against object, initial encounter; M25.312 Other instability, left shoulder; M24.412 Recurrent dislocation, left shoulder; I10 Essential (primary) hypertension; E66.3 Overweight; Z79.899 Other long term (current) drug therapy; Z87.891 Personal history of nicotine dependence
CPT/HCPCS: 96376; 99284; 99152; 96374; 96375; 36415; 85027; 85610; 80048; 71045; 73020; 73030; 73200; 93005; 93010; 01620; 23655; 23650; J2795; J2250; J3490 ×3; A9270 ×7; J2270; J1170 ×2; J2405 ×2; J7050 ×2; J7120; J2704; J1741 ×2; G0378; J3010; S0119